=== PATIENT | female | born 1965 | race Caucasian/White ===

== ENCOUNTER → 2021-07-01 10:48 | Outpatient (BNVA) | payer OTHER, SELFPAY | PROVIDERS: PCP Internal Medicine; Visit Provider Physician Assistant Medical | DX: Z13.89 Encounter for screening for other disorder (principal) | CPT/HCPCS: 71046; 99203 ==

== ENCOUNTER → 2021-07-21 11:19 | Outpatient (BNVA) | payer OTHER, SELFPAY | PROVIDERS: PCP Internal Medicine; Visit Provider Physician Assistant Medical | DX: Z13.89 Encounter for screening for other disorder (principal) ==

== ENCOUNTER 2024-05-07 09:07 | Outpatient (REF) | payer OTHER, SELFPAY ==
--- NOTE | ~2024-05-07 | XR_ITS ---
EXAMINATION: XR KNEE, RIGHT CLINICAL INFORMATION: M17.11 - Unilateral primary osteoarthritis, right knee COMPARISON: July 23, 2015 TECHNIQUE: Three views of the right knee. FINDINGS: Asymmetric joint space narrowing involving the medial compartment. Mild sclerosis and the articular surface of the medial tibial plateau. No acute cortical disruption or malalignment. No lytic or blastic lesions. No suprapatellar bursa joint effusion. XR/XR knee RT 3V IMPRESSION: Mild medial compartment osteoarthrosis. Electronically signed by: Stephon Carmona MD 05/08/2024 02:04 PM EDT
--- OUTSIDE RECORDS SUMMARY | 2024-05-08 10:00 | XMS_ITS | Clinical Summary ---
Author Organization [facility] Address [address] [place] [address] Phone Care Team Providers Care Diesel Locomotive Engineer Name Role Phone Keyon Crespo MD Primary Care Provider [phone] Allergies Active Allergy Reactions Criticality Noted Date Comments Ymwvznpdti-Yogoplb-Tkkunyhc Nausea And Vomiting Medium 01/19/2024 Surgical History Surgery Date Site/Laterality Comments TUBAL LIGATION 02/1990 PROCEDURE: HISTORICAL TUBAL LIGATION BREAST BIOPSY in her 30's Left PROCEDURE: BX BREAST; PERC NEEDLE CORE W/IMAG GUID; COMMENT: lt. breast bx.-benign BREAST SURGERY 2005 PROCEDURE: TN UNLISTED PROCEDURE BREAST; COMMENT: lt. cyst removed Medical History Medical History Date Comments Migraine DX:Migraine Allergic rhinitis DX:Allergic rh initis Cervical radiculopathy 06/15/2016 DX:Cervic al radiculopathy Cold sore 08/11/2016 DX:Cold sore Female stress incontinence 08/09/2014 DX:Fe male stress incontinence Abnormal brain MRI 11/17/2016 DX:Abnormal b rain MRI Abnormal echocardiogram 11/26/2016 DX:Abnor mal echocardiogram; COMMENT: 11/23-Highly mobile interatrial septum consistent with interatrial septal aneurysm, no patent foremon ovale. daily ASA 81 mg and referral to cardiology. Colon cancer screening 05/18/2017 DX:Colon cancer screening; COMMENT: 05/25- FIT cards given. Transient visual loss of both eyes 11/17/2016 DX:Transient visual loss of both eyes; COMMENT: 11/23- could not be reached by eye surfaces, letter sent Covid-19 02/04/2021 DX:COVID-19 Aneurysm (CMS/HCC) Family History Medical History Relation Name Comments Diabetes Brother half brother, h tn CABG Father quadruple, Park inson's,HTN Stroke Sister 1 hemorrhagic, HT N CABG Sister 2 Hypertension Son Relation Name Status Comments Brother Father Alive CABG, htn, Sister 1 Sister 2 Son Social History Tobacco Use Types Packs/Day Years Used Date Smoking Tobacco: Never Smokeless Tobacco: Never Alcohol Use Standard Drinks/Week Comments No 0 (1 standard drink = 0.6 oz pur e alcohol) Comments Unknown Sex and Gender Information Value Date Recorded Sex Assigned at Female 01/19/2024 8:52 PM EST Legal Sex Female 8:58 AM EST Gender Identity Female 01/19/2024 8:52 PM EST Sexual Orientation Straight 01/19/2024 8: 52 PM EST Obstetrics History Last Filed Vital Signs Vital Sign Reading Time Taken Comments Blood Pressure 128/80 01/20/2024 5:08 AM EST Pulse 109 01/20/2024 5:08 AM EST Temperature 37 ??C (98.6 ??F) 01/20/2024 5:08 AM EST Respiratory Rate 14 01/20/2024 5:08 AM EST Oxygen Saturation 99% 01/20/2024 5:08 AM EST Inhaled Oxygen Concentration - - Weight 72.6 kg (160 lb) 01/19/2024 7:19 PM EST Height 162.6 cm (5' 4 ) 01/19/2024 7:19 PM EST Body Mass Index 27.46 01/19/2024 7:19 PM EST Plan of Treatment Health Maintenance Due Date Last Done Comments Pneumococcal Vaccine: 50+ Years (1 of 1 - PCV) 2017 Zoster Vaccines (1 of 2) 2017 DTaP,Tdap,and Td Vaccines (2 - Td or Tdap) 08/14/2018 08/14/2008 Colorectal Cancer Screening: Stool Based Tests (FOBT/FIT) 01/16/2022 Depression Screening 01/16/2022 HIV Screening 01/16/2022 Hepatitis C Screening 01/16/2022 Social Influencers of Health Screening 01/16/2022 Cervical Cancer Screening: Pap Smear 11/05/2022 11/06/2019 COVID-19 Vaccine ( season) 2023 10/21/2021, 07/12/2020, 06/14/2020 Influenza Vaccine (#1) 2023 11/27/2019, 2016 Breast Cancer Screening 03/25/2024 03/25/19, 03/20/2021, 03/18/2020, Additional history exists Hepatitis A Vaccines Aged Out 03/12/2009, 08/14/2008, 07/03/2008 No longer eligible based on patient's age to complete this topic Hepatitis B Vaccines Completed 03/12/2009, 08/14/2008, 07/03/2008 MMR Vaccines Aged Out 06/04/2021, 05/08, 04/08/2016 No longer eligible based on patient's age to complete this topic HIB Vaccines Aged Out No longer eligi ble based on patient's age to complete this topic HPV Vaccines Aged Out No longer eligi ble based on patient's age to complete this topic IPV Vaccines Aged Out No longer eligi ble based on patient's age to complete this topic Meningococcal ACWY Vaccine Aged Out N o longer eligible based on patient's age to complete this topic Meningococcal B Vacine Aged Out No lo nger eligible based on patient's age to complete this topic Pneumococcal Vaccine: Pediatrics (0 to 5 Years) and At-Risk Patients (6 to 64 Years) Aged Out No longer eligible based on patient's age to complete this topic RSV Immunization Patients Under 20 months Aged Out No longer eligible based on patient's age to complete this topic Varicella Vaccines Aged Out No longer eligible based on patient's age to complete this topic Procedures Procedure Name Priority Date/Time Associated Diagnosis Comments SCREENING MAMMOGRAPHY BI 2-VIEW BREAST INC CAD Routine 03/25/2022 4:23 PM EST Encounter for screening mammogram for malignant neoplasm of breast PAP SMEAR Routine 11/06/2019 from Last 3 Months or Most Recently Relevant to Health Maintenance Results * SCREENING MAMMOGRAPHY BI 2-VIEW BREAST INC CAD (03/25/2022 4:23 PM EST) Anatomical Region Laterality Modality Radiographic Pamela ging 03/20/2021 2:07 PM EST Narrative 03/26/2022 1:25 PM EST This is a summary report. The complete report is available in the patient's medical record. If you cannot access the medical record, please contact the sending organization for a detailed fax or copy. Full field digital screening mammography, using both 2D mammography and tomosynthesis, reviewed with CAD and compared to previous. ??The breasts are composed of fatty and fibroglandular tissue. ??No suspicious mass, architectural distortion or suspicious calcifications are identified. IMPRESSION: : No mammographic evidence of malignancy. BIRADS 1-Negative; N. 5 year breast cancer risk assessment 0.7 % Lifetime breast cancer risk assessment 5.4 % Breast cancer risk category Low (<15%) Procedure Note Trevin Cortez MD - 03/14/2023 This is a summary report. The complete report is available in thepatient's medical record. If you cannot access the medical record, pleasecontact the sending organization for a detailed fax or copy. Full field digital screening mammography, using both 2D mammography andtomosynthesis, reviewed with CAD and compared to previous. The breastsare composed of fatty and fibroglandular tissue. No suspicious mass,architectural distortion or suspicious calcifications are identified. IMPRESSION: : No mammographic evidence of malignancy. BIRADS 1-Negative; N. 5 year breast cancer risk assessment 0.7 % Lifetime breast cancer risk assessment 5.4 % Breast cancer risk category Low (<15%) us Nita Cox CNMiguel A IMG XR PROCEDURES Final Resul t * Pap smear (11/06/2019) 11/06/2019 Narrative HISTORICAL TESTING LAB RESULTING AGENCY - 11/15/2019 1:25 PM EDT [id number] THINPREP PAP AND CELL BLOCK: NEGATIVE FOR SQUAMOUS INTRAEPITHELIAL LESION AND MALIGNANCY . VANDANA AGUILAR , CT(ASCP) (CASE SCREENED 11 12 2019) BONNIE PUCKETT M.D. , PATHOLOGIST (CASE ELECTRONICALLY SIGNED 11 15 2019) RESULT OF APTIMA HIGH RISK HPV ASSAY: HIGH RISK HPV: ??NEGATIVE (SEROTYPES 16,18,31,33,35,39,45,51,52,56,58,59,66,68) COMPLETED ON 2019-11-09 ADEQUACY: SATISFACTORY ENDOCERVICAL/TRANSFORMATION ZONE COMPONENT PRESENT. SOURCE: THINPREP PAP HPV ANY DX: ??REFLEX 16 AND 18, CERVICAL, IMAGED CLINICAL INFORMATION: HPV ANY DIAGNOSIS. NEG LAST PAP 12/31/13= NEG, HPV NEG, NO PERIODS - IUD, Z12.4 CB 11/08/19 us Nita D[facility] LAB CYTOLOGY ORDERABLES Final Result HISTORICAL TESTING LAB RESULTING AGENCY from Last 3 Months or Most Recently Relevant to Health [place] [address] [place] [id number] [facility] Care Teams Diesel Locomotive Engineer Relationship Specialty Start Date End Date Keyon Crespo MD [address] [place] [address] PCP - General Family Medicine 01/19/24
== END 2024-05-07 09:08 | disposition home or self-care (01) ==
LOC: HO.HOSX 09:07
PROVIDERS: Visit Provider Physician Assistant
DX: M17.11 Unilateral primary osteoarthritis, right knee (principal)
CPT/HCPCS: 73562

== ENCOUNTER 2024-05-07 09:17 | Outpatient (AMB) | payer OTHER, SELFPAY ==
--- NOTE | 2024-05-07 09:27 | A.OFFVIS_ITS ---
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 Patient was referred by [facility] s/p slip and fall on ice in [employer] parking lot. She landed on her left buttock and thigh and her right knee crossed over causing knee to strike the pavement. She was seen at 3 different urgent cares. Currently she has intermittent pain located at the medial aspect of knee. Her pain increases with bearing weight and ambulation. She has weakness with stair use. States her knee gave out twice. States feeling a lump at the posterior aspect of knee that comes and goes. She has been attending PT. No other tx. She has been out of work, due to her pain and making it difficult to drive. 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 She states when she fell her knee hit the ground specifically on the medial aspect. She was seen at an urgent care facility and she has also been attending physical therapy. She states with physical therapy she feels a snapping type sensation along the lateral aspect of the knee. She is also feeling some episodes of the knee giving way where she falls. 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 No joint effusion present. She has mild medial-sided tenderness along the tibia. Negative Mook's. No pain or laxity with varus valgus stress. Full range of motion without crepitus. Calf supple nontender neurovascularly intact. Results Reviewed Results Reviewed: Xrays were obtained in the office today and personally reviewed by me of the right knee are negative for acute or chonic abnormalities. Assessment & Plan Assessment & Plan (1) Chondromalacia, right knee: Code(s): M94.261 - Chondromalacia, right knee Category: Medical Plan I feel as though this was primarily a bone contusion which I explained can take overall 3 months for good healing. I stressed the importance of limiting activities if there is pain. She should continue with physical therapy specifically for glute and hamstring strengthening exercises. If symptoms persist or worsen she will contact our office otherwise follow up as needed. Orders: Orders XR knee RT 3V Today M17.11 - Unilateral primary osteoarthritis, right knee PT Evaluation and Treatment Today M94.261 - Chondromalacia, right knee Coding Level of Care Code New Pt Level 3 (96539) Complex EM visit Add On G2211 Diagnoses Chondromalacia, right knee M94.261
[2024-05-07 09:54] VITALS: BMI 27.3
== END 2024-05-07 10:52 | disposition home or self-care (01) ==
LOC: HO.HOS 09:17
PROVIDERS: PCP Internal Medicine; Visit Provider Physician Assistant
DX: M94.261 Chondromalacia, right knee (principal)
CPT/HCPCS: 99203

== ENCOUNTER → 2024-05-07 09:31 | Outpatient (BNV) | payer OTHER, SELFPAY | PROVIDERS: Visit Provider Radiology Diagnostic Radiology | DX: M17.11 Unilateral primary osteoarthritis, right knee (principal) | CPT/HCPCS: 73562 ==

== ENCOUNTER 2024-06-03 17:28 | Outpatient (REF) | payer OTHER, SELFPAY | END 2024-06-03 17:29 | disposition home or self-care (01) | LOC: HO.MRI 17:28 | PROVIDERS: PCP Family Medicine; Visit Provider Physician Assistant | DX: M17.11 Unilateral primary osteoarthritis, right knee (principal) | CPT/HCPCS: 73721 ==

== ENCOUNTER → 2024-06-03 17:29 | Outpatient (BNV) | payer OTHER, SELFPAY | PROVIDERS: PCP Family Medicine; Visit Provider Radiology Diagnostic Radiology | DX: M25.561 Pain in right knee (principal) | CPT/HCPCS: 73721 ==

== ENCOUNTER 2024-07-19 11:17 | Outpatient (AMB) | payer OTHER, SELFPAY ==
--- NOTE | 2024-07-19 11:35 | A.OFFVIS_ITS ---
Intake Visit Reasons: TEL- R Knee MRI review Allergies aspirin [Fiorinal] Allergy (Unknown, Verified 05/07/24 09:51) Unknown butalbital [Fiorinal] Allergy (Unknown, Verified 05/07/24 09:51) Unknown caffeine [Fiorinal] Allergy (Unknown, Verified 05/07/24 09:51) Unknown HPI HPI TEL- R Knee MRI review: Details: 59-year-old female presents for telehealth visit right knee MRI review. She states her knee has improved. She states she felt this area behind the knee that was swollen that is now resolved. She has worked with physical therapy and feels the knee is more strong and is currently working with a chiropractor for her low back pain. 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 Mild osteoarthritis of the medial compartment. 2. Moderate sized Nñúez's cyst. 3. Small tear of the posterior horn of the medial meniscus as described. Electronically signed by: Avtar Gomes MD 06/06/2024 12:16 PM EDT Assessment & Plan Assessment & Plan (1) Chondromalacia, right knee: Code(s): M94.261 - Chondromalacia, right knee Category: Medical (2) Peripheral tear of meniscus of right knee: Code(s): S83.203A - Other tear of unspecified meniscus, current injury, right knee, initial encounter Category: Medical Plan Overall the patient has improved since her previous appointment with me. She should continue to increase activities as tolerated. I stressed the importance of working on her home exercise program to maintain her strength and conditioning. If she develops symptoms consistent with catching locking or giving way she should contact our office otherwise she should follow up as needed. Coding Level of Care Code Tele Est Pt Level 3 (36438) Complex EM visit Add On G2211 Diagnoses Chondromalacia, right knee M94.261 Peripheral tear of meniscus of right knee S83.203A
--- OUTSIDE RECORDS SUMMARY | 2024-07-19 13:15 | XMS_ITS | Clinical Summary ---
Author Organization [facility] Address [address] [place] [address] Phone Care Team Providers Care Hand Potter Name Role Phone Keyon Crespo MD Primary Care Provider [phone] Allergies Active Allergy Reactions Criticality Noted Date Comments Yeqtijkiak-Qplsvwn-Hknvlbpq Nausea And Vomiting Medium 01/19/2024 Medications dexAMETHasone (DECADRON) 4 mg tablet Take 1 tablet (4 mg total) by mouth if needed for nausea or vomiting (headache) for up to 4 days. 20 each 06/06/2024 Active Encounters Date Type Department Care Team Description 06/06/2024 7:25 AM EDT - 06/06/2024 8:25 AM EDT Emergency [facility] Emergency [address] [place] [address] Other migraine without status migrainosus, not intractable (Primary Dx); Rhinovirus Discharge Disposition: Home or Self Care from Last 3 Months Surgical History Surgery Date Site/Laterality Comments TUBAL LIGATION 02/1990 PROCEDURE: HISTORICAL TUBAL LIGATION BREAST BIOPSY in her 30's Left PROCEDURE: BX BREAST; PERC NEEDLE CORE W/IMAG GUID; COMMENT: lt. breast bx.-benign BREAST SURGERY 2005 PROCEDURE: [place] UNLISTED PROCEDURE BREAST; COMMENT: lt. cyst removed [...] surfaces, letter sent Covid-19 02/04/2021 DX:COVID-19 Aneurysm (CMS/HCC V24) Family History Medical History Relation Name Comments [...] Sign Reading Time Taken Comments Blood Pressure 120/80 06/06/2024 6:02 AM EDT Pulse 75 06/06/2024 6:02 AM EDT Temperature 36.9 ??C (98.4 ??F) 06/06/2024 6:02 AM ED T Respiratory Rate 16 06/06/2024 6:02 AM EDT Oxygen Saturation 99% 06/06/2024 6:02 AM EDT Inhaled Oxygen Concentration - - Weight 72.1 kg (159 lb) 06/06/2024 2:40 AM EDT Height 162.6 cm (5' 4 ) 06/06/2024 2:40 AM EDT Body Mass Index 27.29 06/06/2024 2:40 AM EDT Plan of Treatment Health Maintenance Due Date [...] Vaccine ( season) 2023 10/21/2021, 07/12/2020, 06/14/2020 Breast Cancer Screening 03/25/2024 03/25/19 23, 03/20/2021, 03/18/2020, Additional history exists Influenza Vaccine (Season Ended) 2024 11/27/2019, 04/06/2016 Hepatitis A Vaccines Aged Out 03/12/2009, 08/14/2008, [...] age to complete this topic Meningococcal B Vaccine Aged Out No l onger eligible based on patient's age to complete [...] Procedure Name Priority Date/Time Associated Diagnosis Comments CBC WITH AUTO DIFFERENTIAL STAT 06/06/2024 3:34 AM EDT COMPREHENSIVE METABOLIC PANEL STAT 06/06/2024 3:34 AM EDT CBC AND DIFFERENTIAL STAT 06/06/2024 3:34 AM EDT RESPIRATORY VIRUS PANEL MOLECULAR STUDY STAT 06/06/2024 3:34 AM EDT SCREENING MAMMOGRAPHY BI 2-VIEW BREAST INC CAD Routine 03/25/2022 4:23 PM EST Encounter for screening mammogram for malignant neoplasm of breast PAP SMEAR Routine 11/06/2019 from Last 3 Months or Most Recently Relevant to Health Maintenance Results * (ABNORMAL) Respiratory virus panel molecular study (06/06/2024 3:34 AM EDT) Adenovirus Detection by PCR Not Detected Not Detected LAB MICROBIOLOGY METHOD 06/06/2024 4:36 AM EDT [facility] Influenza A PCR Not Detected Not Detected LAB MICROBIOLOGY METHOD 06/06/2024 4:36 AM EDT [facility] Influenza B PCR Not Detected Not Detected LAB MICROBIOLOGY METHOD 06/06/2024 4:36 AM EDT [facility] Coronavirus 229E Not Detected Not Detected LAB MICROBIOLOGY METHOD 06/06/2024 4:36 AM EDT [facility] Coronavirus HKU1 Not Detected Not Detected LAB MICROBIOLOGY METHOD 06/06/2024 4:36 AM EDT [facility] Coronavirus OC43 Not Detected Not Detected LAB MICROBIOLOGY METHOD 06/06/2024 4:36 AM EDT [facility] Coronavirus NL63 Not Detected Not Detected LAB MICROBIOLOGY METHOD 06/06/2024 4:36 AM EDT [facility] Parainfluenza Virus 1 Not Detected Not Detected LAB MICROBIOLOGY METHOD 06/06/2024 4:36 AM EDT [facility] Parainfluenza Virus 2 Not Detected Not Detected LAB MICROBIOLOGY METHOD 06/06/2024 4:36 AM EDT [facility] Parainfluenza Virus 3 Not Detected Not Detected LAB MICROBIOLOGY METHOD 06/06/2024 4:36 AM EDT [facility] Parainfluenza Virus 4 Not Detected Not Detected LAB MICROBIOLOGY METHOD 06/06/2024 4:36 AM EDT [facility] RSV PCR Not Detected Not Detected LAB MICROBIOLOGY METHOD 06/06/2024 4:36 AM EDT [facility] Human Metapneumovirus A and B Not Detected Not Detected LAB MICROBIOLOGY METHOD 06/06/2024 4:36 AM EDT [facility] Rhinovirus/Entero virus Detected(A ) Not Detected LAB MICROBIOLOGY METHOD 06/06/2024 4:36 AM EDT [facility] Bordetella pertussis Not Detected Not Detected LAB MICROBIOLOGY METHOD 06/06/2024 4:36 AM EDT [facility] Bordetella parapertussis Not Detected Not Detected LAB MICROBIOLOGY METHOD 06/06/2024 4:36 AM EDT [facility] Mycoplasma pneumo by PCR Not Detected Not Detected LAB MICROBIOLOGY METHOD 06/06/2024 4:36 AM EDT [facility] Chlamydia pneumoniae Not Detected Not Detected LAB MICROBIOLOGY METHOD 06/06/2024 4:36 AM EDT [facility] SARS COV-2 Not Detected Not Detected LAB MICROBIOLOGY METHOD 06/06/2024 4:36 AM EDT [facility] Swab Nasopharyngeal structure / Unknown Non-blood Collection / Unknown 06/06/2024 3:34 AM EDT 06/06/2024 3:39 AM EDT [facility] - 06/06/2024 4:36 AM EDT Testing was performed using the [employer] Respiratory Pathogen PCR Assay. All results must be correlated with the clinical findings. Results should not be used as the sole basis for diagnosis. False Negative results may occur from the presence of sequence variants in the region targeted by the assay or the presence of inhibitors. Results may be affected by concurrent antiviral/antimicrobial therapy or levels of organisms that are below the limit of detection. Yasmani Johan Briggs MD LAB MICROBIOLOGY - GENERAL DONG [place] Final Result [facility] [address] [place] [address], * CBC auto differential (06/06/2024 3:34 AM EDT) [facility] WBC 6.2 4.8 - 10.8 K/mcL LAB HEMETOLOGY METHOD 06/06/2024 3:47 AM EDT [facility] RBC 4.30 3.80 - 4.80 M/mcL LAB HEMETOLOGY METHOD 06/06/2024 3:47 AM EDT [facility] Hemoglobin 12.5 11.5 - 16.0 g/dL LAB HEMETOLOGY METHOD 06/06/2024 3:47 AM EDT [facility] Hematocrit 38.7 35.0 - 47.0 % LAB HEMETOLOGY METHOD 06/06/2024 3:47 AM EDT [facility] MCV 89.4 79.0 - 98.0 FL LAB HEMETOLOGY METHOD 06/06/2024 3:47 AM EDT [facility] MCH 28.9 27.0 - 32.0 pcg LAB HEMETOLOGY METHOD 06/06/2024 3:47 AM EDT [facility] MCHC 32.3 32.0 - 37.0 g/dL LAB HEMETOLOGY METHOD 06/06/2024 3:47 AM [facility] RDW 12.4 11.0 - 15.0 % LAB HEMETOLOGY METHOD 06/06/2024 3:47 AM EDT [facility] Platelets 223 130 - 400 K/mcL LAB HEMETOLOGY METHOD 06/06/2024 3:47 AM [facility] MPV 10.2 7.0 - 11.0 FL LAB HEMETOLOGY METHOD 06/06/2024 3:47 AM [facility] NRBC 0.0 <1.0 % LAB HEMETOLOGY METHOD 06/06/2024 3:47 AM [facility] NRBC Absolute 0.00 <0.10 K/mcL LAB HEMETOLOGY METHOD 06/06/2024 3:47 AM [facility] Neutrophils Relative 51.3 % LAB HEMETOLOGY METHOD 06/06/2024 3:47 AM [facility] Lymphocytes Relative 37.9 % LAB HEMETOLOGY METHOD 06/06/2024 3:47 AM [facility] Monocytes Relative 8.7 % LAB HEMETOLOGY METHOD 06/06/2024 3:47 AM [facility] Eosinophils Relative 1.3 % LAB HEMETOLOGY METHOD 06/06/2024 3:47 AM [facility] Basophils Relative 0.6 % LAB HEMETOLOGY METHOD 06/06/2024 3:47 AM [facility] Immature Granulocytes Relative 0.2 % LAB HEMETOLOGY METHOD 06/06/2024 3:47 AM [facility] Neutrophils Absolute 3.18 1.50 - 7.00 K/mcL LAB HEMETOLOGY METHOD 06/06/2024 3:47 AM [facility] Lymphocytes Absolute 2.35 1.00 - 5.00 K/mcL LAB HEMETOLOGY METHOD 06/06/2024 3:47 AM [facility] Monocytes Absolute 0.54 0.20 - 1.00 K/mcL LAB HEMETOLOGY METHOD 06/06/2024 3:47 AM [facility] Eosinophils Absolute 0.08 0.00 - 0.50 K/[facility] LAB HEMETOLOGY METHOD 06/06/2024 3:47 AM EDT [facility] Basophils Absolute 0.04 0.00 - 0.20 K/[facility] LAB HEMETOLOGY METHOD 06/06/2024 3:47 AM EDT [facility] Immature Granulocytes Absolute 0.01 0.00 - 0.03 K/[facility] LAB HEMETOLOGY METHOD 06/06/2024 3:47 AM EDT [facility] Blood Venous blood specimen / Unknown Venipuncture / Unknown 06/06/2024 3:34 AM EDT 06/06/2024 3:39 AM EDT us Lv Galeas MD LAB BLOOD ORDERABLES Final Resu lt [facility] [address] [place] [address], * (ABNORMAL) Comprehensive metabolic panel (06/06/2024 3:34 AM EDT) Sodium 140 133 - 145 mmol/L LAB CHEMISTRY METHOD 06/06/2024 4:16 AM [facility] Potassium 4.0 3.5 - 5.5 mmol/L LAB CHEMISTRY METHOD 06/06/2024 4:16 AM [facility] Chloride 109 96 - 110 mmol/L LAB CHEMISTRY METHOD 06/06/2024 4:16 AM [facility] CO2 25 21 - 32 mmol/L LAB CHEMISTRY METHOD 06/06/2024 4:16 AM [facility] Anion Gap 6 3 - 11 LAB CHEMISTRY METHOD 06/06/2024 4:16 AM [facility] Glucose 111(H) 70 - 100 mg/dL LAB CHEMISTRY METHOD 06/06/2024 4:16 AM [facility] BUN 12 5 - 25 mg/dL LAB CHEMISTRY METHOD 06/06/2024 4:16 AM [facility] Creatinine 0.63 0.50 - 1.10 mg/dL LAB CHEMISTRY METHOD 06/06/2024 4:16 AM [facility] eGFR 104 >=60 mL/min/1. 73m2 LAB CHEMISTRY METHOD 06/06/2024 4:16 AM [facility] Comment:Calculation based on the??Chronic Kidney Disease Epidemiology Collaboration (CKD-EPI) equation refit??without adjustment for race. BUN/Creatinine Ratio 19.0 LAB CHEMISTRY METHOD 06/06/2024 4:16 AM [facility] Calcium 8.9 8.5 - 10.5 mg/dL LAB CHEMISTRY METHOD 06/06/2024 4:16 AM [facility] AST (SGOT) 15 10 - 42 unit/L LAB CHEMISTRY METHOD 06/06/2024 4:16 AM [facility] ALT (SGPT) 17 10 - 60 unit/L LAB CHEMISTRY METHOD 06/06/2024 4:16 AM [facility] Alkaline Phosphatase 93 42 - 121 unit/L LAB CHEMISTRY METHOD 06/06/2024 4:16 AM [facility] Total Protein 7.1 6.0 - 8.0 g/dL LAB CHEMISTRY METHOD 06/06/2024 4:16 AM [facility] Albumin 3.3 3.2 - 5.0 g/dL LAB CHEMISTRY METHOD 06/06/2024 4:16 AM [facility] Total Bilirubin 0.5 0.0 - 1.4 mg/dL LAB CHEMISTRY METHOD 06/06/2024 4:16 AM [facility] Blood Venous blood specimen / Unknown Venipuncture / Unknown 06/06/2024 3:34 AM EDT 06/06/2024 3:39 AM EDT us Lv Galeas MD LAB BLOOD ORDERABLES Final Resu lt [facility] [address] [place] [address], * SCREENING MAMMOGRAPHY BI 2-VIEW BREAST INC [...] % Breast cancer risk category Low (<15%) Nita Cox CNM IMG XR PROCEDURES Final Resul t * Pap smear (11/06/2019) 11/06/2019 Narrative HISTORICAL TESTING LAB RESULTING AGENCY - 11/15/2019 1:25 PM EDT [id number] THINPREP PAP AND CELL BLOCK: NEGATIVE FOR SQUAMOUS INTRAEPITHELIAL LESION AND MALIGNANCY . RENAE DAVIS(ASCP) (CASE SCREENED 11 12 2019) BONNIE PUCKETT [...] NO PERIODS - IUD, Z12.4 CB 11/08/19 Nita DARNELL LAB CYTOLOGY ORDERABLES Final Result HISTORICAL TESTING LAB RESULTING AGENCY from Last 3 Months or Most Recently Relevant to Health Maintenance [place] [id number] Care Teams Hand Potter Relationship Specialty Start Date End Date Keyon Crespo MD [address] [place] [address] PCP - General Family Medicine 01/19/24
== END 2024-07-19 13:08 | disposition home or self-care (01) ==
LOC: HO.HOS 11:17
PROVIDERS: PCP Family Medicine; Visit Provider Physician Assistant
DX: M94.261 Chondromalacia, right knee (principal); S83.203A Other tear of unspecified meniscus, current injury, right knee, initial encounter
CPT/HCPCS: 99213; G2211